=== PATIENT | male | born 1945 | race Caucasian/White ===

== ENCOUNTER 2018-04-10 18:11 | Emergency (ER) | payer OTHER ==
[2018-04-10 18:36] VITALS: TEMP 97.7; BMI 28.1
--- NOTE | 2018-04-10 19:21 | PDOC ---
History of Present Illness - General History Source: Patient Exam Limitations: No Limitations - History of Present Illness Initial Comments: 04/10/18 19:52 The patient is a 72 year old male, with a significant past medical history of asthma who presents to the emergency department with SOB since last . The patient notes he went to Urgent Care last for SOB and was ordered to take Zpack. The patient notes he was not feeling better, finished his Zpack without any relief, and was told to come to the ED for a chest x-ray. The patient notes having chest pains when coughing but uses his nebulizer every 6 hours with relief. The patient states this feels like is asthma. PAST SURGICAL HISTORY: no significant history FAMILY HISTORY: no pertinent history SOCIAL HISTORY: Pt lives with family and is employed. Former smoker (quit 25 years ago) MEDICATIONS: reviewed ALLERGIES: As per nursing notes <Tim Davidson - Last Filed: 04/10/18 20:04> - General History Source: Patient Exam Limitations: No Limitations - History of Present Illness Initial Comments: 04/10/18 20:49 A portion of this note was documented by scribe services under my direction. I have reviewed the details of the note, within reason, and agree with the documentation with the following case summary and management plan written by me. Patient treated in the ED. Nursing notes are reviewed and incorporated into the medical decision-making. Vital signs reviewed. Assessment and plan: This is a 72-year-old female who was sent in from a urgent care center for evaluation of shortness of breath and hypoxia. Patient said he has been having difficulty breathing times several days was started on a Z-Harpreet without improvement. Urine emergency room patient's O2 sat was 93% here in the emergency room on room air. Workup was initiated including EKG, CBC, comp, chest x-ray, d-dimer, BNP, cardiac enzymes. Patient had an EKG that was normal Patient's chest x-ray is unremarkable for any acute pathology Patient given DuoNeb 00:30 Patient is d-dimer moderately elevated so well obtained CT angios of the chest 04/11/18 01:36 CT angios of the chest was negative for any acute pathology it did show a small nodule on the right upper lobe which I made the patient aware of and recommended that he take a copy of his CAT scan with him to his primary care doctor and follow-up with his primary care doctor regarding the nodule. Patient discharged home <Anabell Iqbal I - Last Filed: 04/11/18 01:39> - General Chief Complaint: Respiratory Stated Complaint: shortness of breath,cough Time Seen by Provider: 04/10/18 19:19 Past History <Tim Davidson - Last Filed: 04/10/18 20:04> - Past Medical History Asthma: Yes COPD: No Other medical history: glucoma - Surgical History Abdominal Surgery: Yes (right inguinal hernia) - Suicide/Smoking/Psychosocial Hx Smoking History: Never smoked Hx Alcohol Use: No Drug/Substance Use Hx: No <Anabell Iqbal I - Last Filed: 04/11/18 01:39> - Past Medical History Allergies/Adverse Reactions: Allergies Allergy/AdvReac Type Severity Reaction Status Date / Time egg Allergy Mild Rash Verified 04/10/18 18:24 milk Allergy Mild Rash Verified 04/10/18 18:24 Penicillins Allergy Mild Rash Verified 04/10/18 18:24 Home Medications: Ambulatory Orders Bimatoprost [Lumigan] 1 drop IO HS 04/10/18 Brimonidine Tartrate [Alphagan 0.2% -] 1 drop OU TID 04/10/18 Fluticasone/Salmeterol [Advair 250-50 Diskus] 1 each IH BID 04/10/18 Prednisone [Deltasone] 40 mg PO DAILY #8 tablet 04/11/18 Review of Systems - Review of Systems Able to Perform ROS?: Yes Comments:: 04/10/18 19:53 General: No fevers or chills, no weakness, no weight loss HEENT: No change in vision. No sore throat,. No ear pain CardioVascular: (+) shortness of breath. (+) chest pain when coughing. Respiratory: (+) cough. No wheezing. Gastrointestinal: no nausea, vomiting, diarrhea or constipation, No rectal bleeding Genitourinary: No dysuria, hematuria, or frequency Musculoskeletal: No joint or muscle pain or swelling Neurologic: No headache, vertigo, dizziness or loss of consciousness Psychiatric: nor depression Skin: No rashes or easy bruising Endocrine: no increased thirst or abnormal weight change Allergic: no skin or latex allergy All other systems reviewed and normal All Other Systems: Reviewed and Negative <Tim Davidson - Last Filed: 04/10/18 20:04> *Physical Exam - Vital Signs Last Vital Signs Temp Pulse Resp BP Pulse Ox 97.7 F 70 16 178/90 H 93 L 04/10/18 18:12 04/10/18 18:12 04/10/18 18:12 04/10/18 18:12 04/10/18 18:12 - Physical Exam Comments: 04/10/18 19:54 General: Well-nourished well-developed individual, no acute distress HEENT: Throat: Normal, tonsils normal, no erythema or exudate Neck: Supple, no meningeal signs, no lymphadenopathy Eyes::Pupils equal reactive and round, extraocular motion intact Chest: Nontender to palpation Cardiac: S1-S2 normal, regular rate and rhythm, no murmurs rubs or gallops Respiratory: (+) crackles in bilateral bases with occasional expiratory wheezing throughout lung grier. Abdomen: Soft, nondistended, normal bowel sounds, nontender to palpation diffusely Extremities: Warm, dry, no cyanosis, clubbing, or edema Skin: No rashes Neuro: Alert and oriented x3, nonfocal exam, grossly intact, normal gait Psych: Normal mood and affect <Tim Davidson - Last Filed: 04/10/18 20:04> - Vital Signs Last Vital Signs Temp Pulse Resp BP Pulse Ox 97.7 F 70 16 178/90 H 93 L 04/10/18 18:12 04/10/18 18:12 04/10/18 18:12 04/10/18 18:12 04/10/18 18:12 <Anabell Iqbal I - Last Filed: 04/11/18 01:39> Moderate Sedation - Procedure Monitoring Vital Signs: Procedure Monitoring Vital Signs Temperature 97.7 F 04/10/18 18:12 Pulse Rate 70 04/10/18 18:12 Respiratory Rate 16 04/10/18 18:12 Blood Pressure 178/90 H 04/10/18 18:12 O2 Sat by Pulse Oximetry (%) 93 L 04/10/18 18:12 <Tim Davidson - Last Filed: 04/10/18 20:04> - Procedure Monitoring Vital Signs: Procedure Monitoring Vital Signs Temperature 97.7 F 04/10/18 18:12 Pulse Rate 70 04/10/18 18:12 Respiratory Rate 16 04/10/18 18:12 Blood Pressure 178/90 H 04/10/18 18:12 O2 Sat by Pulse Oximetry (%) 93 L 04/10/18 18:12 <Anabell Iqbal I - Last Filed: 04/11/18 01:39> Heart Score/ECG Review - Electrocardiogram EKG: Normal (normal sinus rhythm at 66 bpm) <Tim Davidson - Last Filed: 04/10/18 20:04> ED Treatment Course - LABORATORY CBC & Chemistry Diagram: 04/10/18 19:43 04/10/18 19:43 <Tim Davidson - Last Filed: 04/10/18 20:04> - LABORATORY CBC & Chemistry Diagram: 04/10/18 19:43 04/10/18 19:43 <Anabell Iqbal I - Last Filed: 04/11/18 01:39> *DC/Admit/Observation/Transfer - Attestations Scribe Attestion: 04/10/18 19:54 Documentation prepared by Tim Davidson, acting as medical genetics director for Anabell Iqbal MD <Tim Davidson - Last Filed: 04/10/18 20:04> - Discharge Dispostion Decision to Admit order: No <Anabell Iqbal I - Last Filed: 04/11/18 01:39> Diagnosis at time of Disposition: Acute exacerbation of moderate persistent extrinsic asthma Dyspnea Qualifiers: Dyspnea type: unspecified Qualified Code(s): R06.00 - Dyspnea, unspecified - Discharge Dispostion Disposition: HOME Condition at time of disposition: Stable - Patient Instructions Additional Instructions: Take 40 mg of prednisone a day for the next 4 days. Appointment with your doctor to follow-up on the nodule that was seen on the CAT scan. Return to the emergency department immediately with ANY new, persistent or worsening symptoms. Continue any medications as previously prescribed by your physician. You should follow up with your primary doctor as soon as possible regarding today's emergency department visit. . Please make sure your doctor reviews the results of your emergency evaluation. Thank you for coming to the Emergency Department today for your care. It was a pleasure to see you today. Please note that your evaluation is INCOMPLETE until you follow-up with your doctor.
[2018-04-10 19:52] LABS: BASO % 0.4 % (0-2.0); EOS % 0.8 % (0-4.5); HEMATOCRIT 43.5 % (35.4-49); HEMOGLOBIN 14.1 GM/dl (11.7-16.9); LYMPH % 12.9 % (8-40); MCH 29.5 pg (25.7-33.7); MCHC 32.3 g/dl (32.0-35.9); MEAN CELL VOLUME 91.2 fl (80-96); MEAN PLT VOLUME 8.6 fl (7.5-11.1); NEUT % 77.9 % (42.8-82.8); PLATELET COUNT 185 K/MM3 (134-434); RBC 4.77 M/mm3 (4.00-5.60); RDW 12.7 % (11.9-15.9); WHITE BLOOD COUNT 6.9 K/mm3 (4.0-10.8)
[2018-04-10 20:09] LABS: ALBUMIN 3.4 g/dl (3.4-5.0); ALK PHOS 63 U/L (45-117); ANION GAP 10 MMOL/L (8-16); BILIRUBIN,TOTAL 0.6 mg/dl (0.2-1); BLOOD UREA NITROGEN 21 mg/dl (7-18); CALCIUM 8.5 mg/dl (8.5-10); CHLORIDE 104 mmol/L (98-107); CO2 24 mmol/L (21-32); CREATININE 0.8 mg/dl (0.55-1.3); GLUCOSE,RANDOM 87 mg/dl (74-106); POTASSIUM 4.1 mmol/L (3.5-5.1); SGOT/AST 20 U/L (15-37); SGPT/ALT 18 U/L (13-61); SODIUM 138 mmol/L (136-145); TOT PROT 7.1 g/dl (6.4-8.2)
[2018-04-10] MEDS ORDERED: ALBUTEROL SO4 2.5/IPRATROPIUM 0.5 INH SOL 3 ML VIAL.NEB. NEB ONE ×2 (20:15→20:16)
[2018-04-10] MEDS ORDERED: DEXAMETHASONE SOD PHOSPHATE 10 MG/1 ML VIAL IVPUSH ONE (22:46)
[2018-04-10 22:49] VITALS: BP 162/86; PULSE 69
[2018-04-10] MEDS ORDERED: DEXAMETHASONE SOD PHOSPHATE 10 MG/1 ML VIAL ONE (22:49)
--- NOTE | 2018-04-11 16:32 | EKG ---
Test Reason : Blood Pressure : / mmHG Vent. Rate : 066 BPM Atrial Rate : 066 BPM P-R Int : 144 ms QRS Dur : 094 ms QT Int : 414 ms P-R-T Axes : 055 -04 052 degrees QTc Int : 434 ms NORMAL SINUS RHYTHM NORMAL ECG NO PREVIOUS ECGS AVAILABLE Confirmed by Gautam Neal ([id number]) on 04/11/2018 4:32:03 PM Referred By: DR SWAIN Confirmed By:Gautam Neal
== END 2018-04-11 01:44 | disposition home or self-care (01) ==
LOC: FER 18:11
PROC: 3E0F7GC Introduction of Other Therapeutic Substance into Respiratory Tract, Via Natural or Artificial Opening (ICD-10-PCS; principal; 2018-04-10)
PROC: 3E033GC Introduction of Other Therapeutic Substance into Peripheral Vein, Percutaneous Approach (ICD-10-PCS; 2018-04-10)
DX: R06.00 Dyspnea, unspecified (principal); J45.901 Unspecified asthma with (acute) exacerbation
CPT/HCPCS: 36415; 71045-TC-FY; 71275-TC; 80053; 82550; 83880; 84484; 85025; 85379; 93005; 94640; 96374; 99283-25; J1100